=== PATIENT | male | born 1940 | race Caucasian/White ===

== ENCOUNTER 2016-11-08 06:50 | Outpatient (CLI) | payer MEDICARE, BC ==
[2016-11-08] VITALS (12 sets, daily range): BP systolic 135–182; BP diastolic 73–101; PULSE 58–66; TEMP 98.7
[~2016-11-08] VITALS: Ht 175.3 cm; Wt 80.5 kg
[~2016-11-08 06:50] MED LIST: ASPIRIN 81M81 MG/TA2 PO; BROVANA15 MCG/2 M IH; BUSPAR10 MG PO; CEFTIN 250250 MG/TAB PO; CIPRO 250MG TA250 MG PO; COLACE 100100 MG/CAP PO; COREG 6.256.25 MG/TA PO; FLOMAX 0.40.4 MG/CAP PO; FLUOCINONIDE TP; IMDUR 30MG30 MG/TAB PO; KEPPRA 500MG500 MG PO; LASIX 20MG TABL20 MG PO; LIPITOR 40MG TA40 MG PO; MICRO-K 10 EXT10 MEQ PO; NORCO 325 MG-51 TAB PO; NORVASC 10MG10 MG PO; PRINIVIL10 MG PO; PULMICORT90 MCG/Act IH; RT SPIRIVA18 MCG IH; STOOL SOFTENER100 M2 PO; TYLENOL 500MG500 MG PO; UNABLE; XANAX 0.5MG0.5 MG PO; XARELTO20 MG PO; ZOLOFT 50MG50 MG PO
== END 2016-11-08 11:33 | disposition home or self-care (01) ==
LOC: COL.RAD 06:50
DX: D14.31 Benign neoplasm of right bronchus and lung (principal); D32.9 Benign neoplasm of meninges, unspecified; Z85.118 Personal history of other malignant neoplasm of bronchus and lung
CPT/HCPCS: 25581

== ENCOUNTER → 2016-11-13 | Outpatient (CLI) | payer MEDICARE, BC ==
[~2016-11-13] MED LIST changes: +PULMICORT0.5 MG/2 M IH
== END ==
LOC: COL.PUL 13:45
DX: C34.2 Malignant neoplasm of middle lobe, bronchus or lung (principal); D32.1 Benign neoplasm of spinal meninges

== ENCOUNTER 2017-05-03 09:00 | Outpatient (CLI) | payer MEDICARE, BC ==
[~2017-05-03] VITALS: Ht 175.3 cm; Wt 80.6 kg
[2017-05-03] VITALS (11 sets, daily range): BP systolic 134–176; BP diastolic 78–92; PULSE 64–70
[~2017-05-03 09:00] MED LIST changes: -PULMICORT0.5 MG/2 M IH
[2017-05-03] MEDS ORDERED: PULMICORT0.5 MG/2 M IH ×2 (09:33→09:34)
== END 2017-05-03 14:00 | disposition home or self-care (01) ==
LOC: COL.RAD 09:00
DX: C34.2 Malignant neoplasm of middle lobe, bronchus or lung (principal); Z86.011 Personal history of benign neoplasm of the brain
CPT/HCPCS: 25757

== ENCOUNTER 2018-04-11 12:40 | Day surgery (SDC) | payer MEDICARE, BC ==
[~2018-04-11] VITALS: Ht 175.3 cm; Wt 80.2 kg
[~2018-04-11 12:40] MED LIST changes: +PULMICORT0.5 MG/2 M IH
[2018-04-11 13:26] VITALS: BP 142/66; PULSE 61; TEMP 97.4
[2018-04-11] MEDS ORDERED: LIPITOR 40MG TA40 MG PO (13:34)
[2018-04-11] MEDS ORDERED: RT SPIRIVA18 MCG IH (13:37)
[2018-04-11] MEDS ORDERED: ASPIRIN E.C. 8181 MG PO (13:39)
[2018-04-11 16:27] VITALS: BP 112/70; PULSE 79; TEMP 98.2
[2018-04-11 16:45] VITALS: BP 143/67; PULSE 79
[2018-04-11 17:00] VITALS: BP 133/95; PULSE 73
[2018-04-11] MEDS ORDERED: NORCO 325 MG-51 TAB PO (17:59)
[2018-04-11] MEDS ORDERED: SENOKOT S 50 MG1 TAB PO (18:00)
== END 2018-04-11 17:55 | disposition home or self-care (01) ==
LOC: SDCO 12:40
DX: N40.1 Benign prostatic hyperplasia with lower urinary tract symptoms (principal); R33.9 Retention of urine, unspecified; R35.0 Frequency of micturition; F41.9 Anxiety disorder, unspecified; J44.9 Chronic obstructive pulmonary disease, unspecified; I10 Essential (primary) hypertension; I95.9 Hypotension, unspecified; N32.0 Bladder-neck obstruction; I25.10 Atherosclerotic heart disease of native coronary artery without angina pectoris; D64.9 Anemia, unspecified; Z79.82 Long term (current) use of aspirin; Z88.0 Allergy status to penicillin; Z88.2 Allergy status to sulfonamides; Z85.118 Personal history of other malignant neoplasm of bronchus and lung; Z85.841 Personal history of malignant neoplasm of brain; Z87.891 Personal history of nicotine dependence
CPT/HCPCS: C1769; J0690; J2250; J2370; J2405; J2704; J2710; J3010; J7120